=== PATIENT | male | born 1970 | race Caucasian/White ===

== ENCOUNTER 2018-03-07 02:50 | Emergency (ER) | payer MEDICARE, MEDICAID ==
[~2018-03-07] VITALS: Ht 175.3 cm; Wt 119.5 kg
[~2018-03-07 02:50] MED LIST: ASPI81TA52 PO; ATOR40TA PO; CARSR60C PO; CITA-278 PO; CLOZ200T PO; FERR325T28 PO; GLIM1TAB46 PO; LOSA25TA96 PO; METF500T PO; OMEP20CA10 PO; TRAM50TA2 PO
[2018-03-07 02:55] VITALS: BP 162/73
[2018-03-07] MEDS ORDERED: cephalexin 250mg capsule PO ONE (03:45)
[2018-03-07] MEDS ORDERED: CEPH500C5 PO (03:45)
== END 2018-03-07 04:09 | disposition home or self-care (01) ==
LOC: ER 02:50
DX: S01.311A Laceration without foreign body of right ear, initial encounter (principal); E11.9 Type 2 diabetes mellitus without complications; F17.200 Nicotine dependence, unspecified, uncomplicated; G89.29 Other chronic pain; Z79.82 Long term (current) use of aspirin; Z79.899 Other long term (current) drug therapy; Z79.84 Long term (current) use of oral hypoglycemic drugs; Z98.890 Other specified postprocedural states; W22.8XXA Striking against or struck by other objects, initial encounter; Y93.89 Activity, other specified; Y92.89 Other specified places as the place of occurrence of the external cause; Y99.8 Other external cause status
CPT/HCPCS: 99283; A6449

== ENCOUNTER 2018-06-01 20:52 | Emergency (ER) | payer MEDICARE, MEDICAID ==
[~2018-06-01] VITALS: Ht 175.3 cm; Wt 115.0 kg
[~2018-06-01 20:52] MED LIST changes: +BISA-155 PO; +CEPH500C5 PO; +MAGN296S50 PO; +NA P133E4 RC; +POTA20TA19 PO
[2018-06-01 21:01] VITALS: BP 138/78
[2018-06-01] MEDS ORDERED: acetaminophen 325mg tablet PO ONE (22:05)
[2018-06-01] MEDS ORDERED: ketorolac trometh inj. 60 MG/2 ML VIAL IM ONE (22:05)
[2018-06-01] MEDS ORDERED: LIDOcaine 5% patch TP ONE (22:05)
[2018-06-01] MEDS ORDERED: HYDR-3965 PO (22:28)
[2018-06-01] MEDS ORDERED: LIDO700A32 TOP (22:28)
[2018-06-01] MEDS ORDERED: CYCL-1 PO (22:28)
== END 2018-06-01 22:45 | disposition home or self-care (01) ==
LOC: ER 20:53
DX: M54.5 Low back pain (principal); E11.9 Type 2 diabetes mellitus without complications; G89.29 Other chronic pain; Z79.82 Long term (current) use of aspirin; Z79.2 Long term (current) use of antibiotics; Z79.899 Other long term (current) drug therapy
CPT/HCPCS: 82948; 99283

== ENCOUNTER 2018-06-24 18:48 | Inpatient (IN) | payer MEDICARE, MEDICAID ==
[~2018-06-24] VITALS: Ht 172.7 cm; Wt 113.7 kg
[~2018-06-24 18:48] MED LIST changes: +CYCL-1 PO; +HYDR-3965 PO; +LIDO700A32 TOP; -POTA20TA19 PO
[2018-06-24 19:23] LABS: CLARITY,URINE CLEAR (Clear); COLOR,URINE YELLOW (Yellow); GLUCOSE, URINE 100 mg/dl (Neg); KETONES,URINE NEGATIVE (Neg); LEUKOCYTE ESTERASE ,URINE NEGATIVE (Neg); NITRITES, URINE NEGATIVE (Neg); OCCULT BLOOD,URINE NEGATIVE (Neg); PROTEIN,URINE NEGATIVE (Neg)
[2018-06-24 19:25] LABS: UA COLLECTION TYPE CLN CATCH MIDSTREAM
[2018-06-24 19:30] LABS: BASOPHILS # (AUTO) 0.2 X10'3 (0-0.2); BASOPHILS % (AUTO) 1.2 % (0-1); EOSINOPHILS # (AUTO) 0.1 X10'3 (0-0.9); EOSINOPHILS % (AUTO) 0.5 % (0-6); HEMATOCRIT 39.1 % (42.0-52.0); HEMOGLOBIN 13.2 g/dl (14.0-17.9); LYMPHOCYTES # (AUTO) 1.2 X10'3 (1.1-4.8); LYMPHOCYTES % (AUTO) 7.1 % (21-51); MEAN CORPUSCULAR HEMOGLOBIN 26.9 PG (27.0-31.0); MEAN CORPUSCULAR HGB CONC 33.8 % (33.0-36.5); MEAN CORPUSCULAR VOLUME 79.7 FL (78-98); MEAN PLATELET VOLUME 6.3 FL (7.4-10.4); MONOCYTES # (AUTO) 0.7 X10'3 (0-0.9); MONOCYTES % (AUTO) 4.2 % (2-12); NEUTROPHILS # (AUTO) 14.1 X10'3 (1.8-7.7); PLATELET COUNT 440 X10'3 (140-440); RED CELL DISTRIBUTION WIDTH 13.2 % (11.5-14.5); WHITE BLOOD COUNT 16.3 X10'3 (4.5-11.0)
[2018-06-24 19:33] LABS: PROTHROMBIN TIME 10.7 SECONDS (9.0-12.0)
[2018-06-24 19:37] LABS: ALANINE AMINOTRANSFERASE 104 U/L (12-78); ALBUMIN 2.9 G/DL (3.4-5.0); ALBUMIN/GLOBULIN RATIO 0.6 (1.1-1.5); ALKALINE PHOSPHATASE 133 IU/L (46-116); ANION GAP 8 (8-16); ASPARTATE AMINO TRANSFERASE 39 U/L (10-37); BILIRUBIN,TOTAL 0.5 MG/DL (0.1-1.0); BLOOD UREA NITROGEN 10 MG/DL (7-18); BUN/CREATININE RATIO 10.6 (5.4-32.0); CALCIUM 9.5 MG/DL (8.5-10.1); CHLORIDE 83 MMOL/L (99-107); CREATININE 0.94 MG/DL (0.60-1.10); GLUCOSE 193 MG/DL (70-104); POTASSIUM 3.3 MMOL/L (3.5-5.1); SODIUM 123 MMOL/L (135-145); TOTAL CARBON DIOXIDE 31.9 MMOL/L (24-32); TOTAL PROTEIN 7.7 G/DL (6.4-8.2); eGFR 85 ML/MIN
[2018-06-24 20:28] LABS: URINE AMPHETAMINE SCREEN NEGATIVE (Neg); URINE BARBITUATE SCREEN NEGATIVE (Neg); URINE BENZODIAZEPINES SCREEN NEGATIVE (Neg); URINE CANNABINOID SCREEN NEGATIVE (Neg); URINE COCAINE SCREEN NEGATIVE (Neg); URINE METHADONE SCREEN NEGATIVE (Neg); URINE OPIATE SCREEN POSITIVE (Neg); URINE PHENCYCLIDINE SCREEN NEGATIVE (Neg)
[2018-06-24 20:28] LABS: PARTIAL THROMBOPLASTIN TIME 35 SECONDS (22-32)
[2018-06-24 20:40] LABS: ETHANOL < 0.010 GM/DL (0.0-0.010)
[2018-06-24] MEDS ORDERED: CefTRIAXone/D5W-Rocephin 1gm 50 ML IV ONE (21:00)
[2018-06-24] MEDS ORDERED: azithromycin/NS 500mg/250ml 250 ML IV ONE (21:00)
[2018-06-24 21:11] LABS: ACETAMINOPHEN < 2.0 UG/ML (10-30)
[2018-06-24] MEDS ORDERED: mag hydrox/Alum hydrox/simeth 30ml oral suspension PO PRN (22:25)
[2018-06-24] MEDS ORDERED: ondansetron/PF 4mg/2ml inj IV PRN (22:25)
[2018-06-24] MEDS ORDERED: HYDROcodone/acetaminophen 5mg/325mg tablet PO PRN (22:25)
[2018-06-24] MEDS ORDERED: acetaminophen 325mg tablet PO PRN (22:25)
[2018-06-24] MEDS ORDERED: magnesium hydroxide 30ml (MOM) UD suspension PO PRN (22:25)
[2018-06-24] MEDS ORDERED: glucagon, human recombinant 1mg kit SUBCUT PRN (22:35)
[2018-06-24] MEDS ORDERED: MESSAGE TO PHARMACY PO ONE (22:35)
[2018-06-24] MEDS ORDERED: dextrose ORAL solution 15 GM/59 ML bottle PO PRN ×2 (22:35)
[2018-06-24] MEDS ORDERED: dextrose 50%-water 50ml dispensing syringe IV PRN ×2 (22:35)
[2018-06-24] MEDS: normal saline 1000ml 1,000 ML IV SCH (22:38)
[2018-06-24 23:03] LABS: HEMOGLOBIN A1C 8.3 % (4.5-6.2)
[2018-06-24] MEDS: clozapine 100mg tablet PO SCH (23:03)
[2018-06-24 23:38] VITALS: BP 162/58
[2018-06-24] MEDS: HYDROcodone/acetaminophen 10/325mg tab PO PRN (23:59)
[2018-06-25] MEDS: traMADol 50MG tablet PO SCH ×4 (01:40→20:19)
[2018-06-25 05:32] LABS: BASOPHILS % (AUTO) 0.3 % (0-1); EOSINOPHILS # (AUTO) 0.1 X10'3 (0-0.9); EOSINOPHILS % (AUTO) 0.8 % (0-6); HEMOGLOBIN 12.4 g/dl (14.0-17.9); LYMPHOCYTES # (AUTO) 1.3 X10'3 (1.1-4.8); LYMPHOCYTES % (AUTO) 9.4 % (21-51); MEAN CORPUSCULAR HEMOGLOBIN 27.5 PG (27.0-31.0); MEAN CORPUSCULAR HGB CONC 34.4 % (33.0-36.5); MEAN PLATELET VOLUME 6.7 FL (7.4-10.4); MONOCYTES # (AUTO) 0.8 X10'3 (0-0.9); MONOCYTES % (AUTO) 6.1 % (2-12); NEUTROPHILS # (AUTO) 11.4 X10'3 (1.8-7.7); NEUTROPHILS % (AUTO) 83.4 % (42-75); PLATELET COUNT 350 X10'3 (140-440); WHITE BLOOD COUNT 13.6 X10'3 (4.5-11.0)
[2018-06-25 06:00] LABS: ALANINE AMINOTRANSFERASE 92 U/L (12-78); ALBUMIN 2.6 G/DL (3.4-5.0); ALBUMIN/GLOBULIN RATIO 0.6 (1.1-1.5); ALKALINE PHOSPHATASE 125 IU/L (46-116); ANION GAP 8 (8-16); ASPARTATE AMINO TRANSFERASE 36 U/L (10-37); BILIRUBIN,TOTAL 0.4 MG/DL (0.1-1.0); BLOOD UREA NITROGEN 9 MG/DL (7-18); BUN/CREATININE RATIO 11.4 (5.4-32.0); CALCIUM 9.2 MG/DL (8.5-10.1); CHLORIDE 92 MMOL/L (99-107); CREATININE 0.79 MG/DL (0.60-1.10); GLUCOSE 103 MG/DL (70-104); SODIUM 131 MMOL/L (135-145); TOTAL CARBON DIOXIDE 30.8 MMOL/L (24-32); eGFR > 90 ML/MIN
[2018-06-25 06:28] LABS: POTASSIUM 2.8 MMOL/L (3.5-5.1)
[2018-06-25] MEDS: normal saline 1000ml 1,000 ML IV SCH (07:12)
[2018-06-25] MEDS ORDERED: potassium Cl 40MEQ/NS 500ml 500 ML IV PRN ×2 (07:25)
[2018-06-25] MEDS ORDERED: potassium Cl 20 mEq SR tablet PO PRN (07:25)
[2018-06-25 07:52] LABS: MAGNESIUM 1.8 MG/DL (1.5-2.4)
[2018-06-25 08:00] VITALS: BP 121/59
[2018-06-25] MEDS ORDERED: azithromycin 250mg tablet PO SCH (08:00)
[2018-06-25] MEDS: diltiazem CD 180mg cap (once-daily) PO SCH (08:01)
[2018-06-25] MEDS: potassium Cl 20 mEq SR tablet PO PRN ×3 (08:01→16:48)
[2018-06-25] MEDS: aspirin 81mg tablet.DR PO SCH (08:02)
[2018-06-25] MEDS: losartan 50mg tablet PO SCH (08:02)
[2018-06-25] MEDS: citalopram 20mg tablet PO SCH (08:02)
[2018-06-25] MEDS: atorvastatin 20mg tablet PO SCH (08:03)
[2018-06-25] MEDS: pantoprazole 40mg Tablet.DR PO SCH (08:03)
[2018-06-25] MEDS: heparin, porcine 5000 units/ml vial SQ SCH ×2 (08:05→20:20)
[2018-06-25 12:30] VITALS: BP 133/53
[2018-06-25 14:27] LABS: ALBUMIN 2.5 G/DL (3.4-5.0); ANION GAP 7 (8-16); BLOOD UREA NITROGEN 10 MG/DL (7-18); CHLORIDE 92 MMOL/L (99-107); CREATININE 0.83 MG/DL (0.60-1.10); GLUCOSE 196 MG/DL (70-104); POTASSIUM 3.5 MMOL/L (3.5-5.1); SODIUM 130 MMOL/L (135-145); TOTAL CARBON DIOXIDE 31.3 MMOL/L (24-32); eGFR > 90 ML/MIN
[2018-06-25] MEDS: insulin Lispro (HumaLOG) vial - multi-dose SQ SCH (18:54)
[2018-06-25 19:00] VITALS: BP 139/75
[2018-06-25] MEDS: CefTRIAXone/D5W-Rocephin 1gm 50 ML IV SCH (20:39)
[2018-06-25] MEDS: clozapine 100mg tablet PO SCH (20:52)
[2018-06-25] MEDS: potassium Cl 20mEq in NS 1,000 ML IV SCH (22:20)
[2018-06-26] VITALS (10 sets, daily range): BP systolic 103–147; BP diastolic 55–77
[2018-06-26] MEDS: traMADol 50MG tablet PO SCH ×4 (02:02→20:10)
[2018-06-26 05:17] LABS: BASOPHILS % (AUTO) 0.3 % (0-1); EOSINOPHILS # (AUTO) 0.1 X10'3 (0-0.9); EOSINOPHILS % (AUTO) 0.9 % (0-6); HEMATOCRIT 33.5 % (42.0-52.0); HEMOGLOBIN 11.6 g/dl (14.0-17.9); LYMPHOCYTES % (AUTO) 9.1 % (21-51); MEAN CORPUSCULAR HEMOGLOBIN 27.6 PG (27.0-31.0); MEAN CORPUSCULAR HGB CONC 34.8 % (33.0-36.5); MEAN CORPUSCULAR VOLUME 79.4 FL (78-98); MEAN PLATELET VOLUME 6.6 FL (7.4-10.4); MONOCYTES # (AUTO) 0.8 X10'3 (0-0.9); NEUTROPHILS # (AUTO) 9.6 X10'3 (1.8-7.7); NEUTROPHILS % (AUTO) 82.7 % (42-75); PLATELET COUNT 359 X10'3 (140-440); RED BLOOD COUNT 4.23 X10'6 (4.70-6.10); RED CELL DISTRIBUTION WIDTH 13.6 % (11.5-14.5); WHITE BLOOD COUNT 11.5 X10'3 (4.5-11.0)
[2018-06-26 05:34] LABS: ALANINE AMINOTRANSFERASE 105 U/L (12-78); ALBUMIN 2.4 G/DL (3.4-5.0); ALBUMIN/GLOBULIN RATIO 0.6 (1.1-1.5); ALKALINE PHOSPHATASE 135 IU/L (46-116); ANION GAP 8 (8-16); ASPARTATE AMINO TRANSFERASE 41 U/L (10-37); BILIRUBIN,TOTAL 0.3 MG/DL (0.1-1.0); BLOOD UREA NITROGEN 10 MG/DL (7-18); BUN/CREATININE RATIO 12.3 (5.4-32.0); CALCIUM 8.7 MG/DL (8.5-10.1); CHLORIDE 95 MMOL/L (99-107); CREATININE 0.81 MG/DL (0.60-1.10); GLUCOSE 245 MG/DL (70-104); MAGNESIUM 1.8 MG/DL (1.5-2.4); POTASSIUM 3.7 MMOL/L (3.5-5.1); SODIUM 131 MMOL/L (135-145); TOTAL CARBON DIOXIDE 27.8 MMOL/L (24-32); TOTAL PROTEIN 6.7 G/DL (6.4-8.2); eGFR > 90 ML/MIN
[2018-06-26] MEDS: aspirin 81mg tablet.DR PO SCH (08:07)
[2018-06-26] MEDS: losartan 50mg tablet PO SCH (08:07)
[2018-06-26] MEDS: citalopram 20mg tablet PO SCH (08:07)
[2018-06-26] MEDS: atorvastatin 20mg tablet PO SCH (08:08)
[2018-06-26] MEDS: pantoprazole 40mg Tablet.DR PO SCH (08:08)
[2018-06-26] MEDS: heparin, porcine 5000 units/ml vial SQ SCH ×2 (08:08→20:10)
[2018-06-26] MEDS: diltiazem CD 180mg cap (once-daily) PO SCH (08:08)
[2018-06-26] MEDS: insulin Lispro (HumaLOG) vial - multi-dose SQ SCH ×3 (08:20→18:46)
[2018-06-26] MEDS: potassium Cl 20mEq in NS 1,000 ML IV SCH (10:55)
[2018-06-26] MEDS: lactobacillus rhamnosus 10,000 MMU CELLS/CAPSULE PO SCH (20:09)
[2018-06-26] MEDS: clozapine 100mg tablet PO SCH (21:06)
[2018-06-26] MEDS: CefTRIAXone/D5W-Rocephin 1gm 50 ML IV SCH (21:07)
[2018-06-27] VITALS: BP 144/52
[2018-06-27] MEDS: potassium Cl 20mEq in NS 1,000 ML IV SCH ×3 (00:35→19:07)
[2018-06-27] MEDS: traMADol 50MG tablet PO SCH ×4 (02:59→19:00)
[2018-06-27 03:00] VITALS: BP 138/65
[2018-06-27 05:35] LABS: BASOPHILS # (AUTO) 0.1 X10'3 (0-0.2); BASOPHILS % (AUTO) 0.5 % (0-1); EOSINOPHILS # (AUTO) 0.1 X10'3 (0-0.9); EOSINOPHILS % (AUTO) 1.1 % (0-6); HEMATOCRIT 34.1 % (42.0-52.0); HEMOGLOBIN 11.7 g/dl (14.0-17.9); LYMPHOCYTES # (AUTO) 1.1 X10'3 (1.1-4.8); LYMPHOCYTES % (AUTO) 9.8 % (21-51); MEAN CORPUSCULAR HEMOGLOBIN 27.3 PG (27.0-31.0); MEAN CORPUSCULAR HGB CONC 34.4 % (33.0-36.5); MEAN CORPUSCULAR VOLUME 79.4 FL (78-98); MEAN PLATELET VOLUME 6.7 FL (7.4-10.4); MONOCYTES # (AUTO) 0.8 X10'3 (0-0.9); MONOCYTES % (AUTO) 6.8 % (2-12); NEUTROPHILS # (AUTO) 9.1 X10'3 (1.8-7.7); NEUTROPHILS % (AUTO) 81.8 % (42-75); PLATELET COUNT 396 X10'3 (140-440); RED BLOOD COUNT 4.29 X10'6 (4.70-6.10); RED CELL DISTRIBUTION WIDTH 13.7 % (11.5-14.5); WHITE BLOOD COUNT 11.2 X10'3 (4.5-11.0)
[2018-06-27 05:48] LABS: ALANINE AMINOTRANSFERASE 137 U/L (12-78); ALBUMIN 2.5 G/DL (3.4-5.0); ALBUMIN/GLOBULIN RATIO 0.6 (1.1-1.5); ALKALINE PHOSPHATASE 161 IU/L (46-116); ANION GAP 8 (8-16); ASPARTATE AMINO TRANSFERASE 52 U/L (10-37); BILIRUBIN,TOTAL 0.6 MG/DL (0.1-1.0); BLOOD UREA NITROGEN 10 MG/DL (7-18); BUN/CREATININE RATIO 14.5 (5.4-32.0); CALCIUM 9.3 MG/DL (8.5-10.1); CHLORIDE 97 MMOL/L (99-107); CREATININE 0.69 MG/DL (0.60-1.10); GLUCOSE 185 MG/DL (70-104); MAGNESIUM 1.7 MG/DL (1.5-2.4); POTASSIUM 3.5 MMOL/L (3.5-5.1); SODIUM 133 MMOL/L (135-145); TOTAL CARBON DIOXIDE 28.5 MMOL/L (24-32); TOTAL PROTEIN 6.9 G/DL (6.4-8.2); eGFR > 90 ML/MIN
[2018-06-27 07:00] VITALS: BP 138/65
[2018-06-27] MEDS: citalopram 20mg tablet PO SCH (07:51)
[2018-06-27] MEDS: losartan 50mg tablet PO SCH (07:51)
[2018-06-27] MEDS: lactobacillus rhamnosus 10,000 MMU CELLS/CAPSULE PO SCH ×2 (07:51→18:59)
[2018-06-27] MEDS: aspirin 81mg tablet.DR PO SCH (07:51)
[2018-06-27] MEDS: diltiazem CD 180mg cap (once-daily) PO SCH (07:52)
[2018-06-27] MEDS: atorvastatin 20mg tablet PO SCH (07:52)
[2018-06-27] MEDS: pantoprazole 40mg Tablet.DR PO SCH (07:52)
[2018-06-27] MEDS: heparin, porcine 5000 units/ml vial SQ SCH ×2 (07:54→20:11)
[2018-06-27] MEDS: insulin Lispro (HumaLOG) vial - multi-dose SQ SCH ×3 (08:47→18:55)
[2018-06-27 11:00] VITALS: BP 150/89
[2018-06-27] MEDS ORDERED: levoFLOXACIN-Levaquin 750MG/D5 150 ML IV SCH (12:20)
[2018-06-27 18:00] VITALS: BP 137/63
[2018-06-27] MEDS: clozapine 100mg tablet PO SCH (21:40)
[2018-06-27] MEDS: HYDROcodone/acetaminophen 10/325mg tab PO PRN (21:41)
[2018-06-28] VITALS: BP 155/57
[2018-06-28] MEDS: traMADol 50MG tablet PO SCH ×2 (02:03→07:16)
[2018-06-28] MEDS: HYDROcodone/acetaminophen 10/325mg tab PO PRN ×2 (05:00→09:07)
[2018-06-28 05:11] LABS: BASOPHILS % (AUTO) 0.3 % (0-1); EOSINOPHILS # (AUTO) 0.1 X10'3 (0-0.9); EOSINOPHILS % (AUTO) 1.3 % (0-6); HEMATOCRIT 36.4 % (42.0-52.0); LYMPHOCYTES % (AUTO) 11.2 % (21-51); MEAN CORPUSCULAR HGB CONC 33.1 % (33.0-36.5); MEAN CORPUSCULAR VOLUME 81.7 FL (78-98); MEAN PLATELET VOLUME 6.5 FL (7.4-10.4); MONOCYTES # (AUTO) 0.6 X10'3 (0-0.9); MONOCYTES % (AUTO) 6.9 % (2-12); NEUTROPHILS # (AUTO) 7.6 X10'3 (1.8-7.7); NEUTROPHILS % (AUTO) 80.3 % (42-75); PLATELET COUNT 443 X10'3 (140-440); RED BLOOD COUNT 4.45 X10'6 (4.70-6.10); RED CELL DISTRIBUTION WIDTH 13.6 % (11.5-14.5); WHITE BLOOD COUNT 9.3 X10'3 (4.5-11.0)
[2018-06-28 05:21] LABS: HBSAG SCREEN Negative (Negative); HEP A AB, IGM Negative (Negative); HEP B CORE AB, IGM Negative (Negative); HEPATITIS C ANTIBODY <0.1 s/co ratio (0.0-0.9)
[2018-06-28 05:37] LABS: ALANINE AMINOTRANSFERASE 139 U/L (12-78); ALBUMIN 2.4 G/DL (3.4-5.0); ALBUMIN/GLOBULIN RATIO 0.5 (1.1-1.5); ALKALINE PHOSPHATASE 156 IU/L (46-116); ANION GAP 8 (8-16); ASPARTATE AMINO TRANSFERASE 42 U/L (10-37); BILIRUBIN,TOTAL 0.4 MG/DL (0.1-1.0); BLOOD UREA NITROGEN 13 MG/DL (7-18); BUN/CREATININE RATIO 15.5 (5.4-32.0); CALCIUM 9.2 MG/DL (8.5-10.1); CHLORIDE 96 MMOL/L (99-107); CREATININE 0.84 MG/DL (0.60-1.10); GLUCOSE 286 MG/DL (70-104); MAGNESIUM 1.6 MG/DL (1.5-2.4); POTASSIUM 4.8 MMOL/L (3.5-5.1); SODIUM 131 MMOL/L (135-145); TOTAL CARBON DIOXIDE 27.5 MMOL/L (24-32); TOTAL PROTEIN 6.9 G/DL (6.4-8.2); eGFR > 90 ML/MIN
[2018-06-28 07:00] VITALS: BP 104/57
[2018-06-28] MEDS: lactobacillus rhamnosus 10,000 MMU CELLS/CAPSULE PO SCH (07:15)
[2018-06-28] MEDS: atorvastatin 20mg tablet PO SCH (07:15)
[2018-06-28] MEDS: aspirin 81mg tablet.DR PO SCH (07:15)
[2018-06-28] MEDS: citalopram 20mg tablet PO SCH (07:15)
[2018-06-28] MEDS: losartan 50mg tablet PO SCH (07:15)
[2018-06-28] MEDS: pantoprazole 40mg Tablet.DR PO SCH (07:16)
[2018-06-28] MEDS: heparin, porcine 5000 units/ml vial SQ SCH (07:17)
[2018-06-28] MEDS ORDERED: levoFLOXACIN 750MG TABLET PO SCH (08:00)
[2018-06-28 08:35] VITALS: BP 121/68
[2018-06-28] MEDS: diltiazem CD 180mg cap (once-daily) PO SCH (08:42)
[2018-06-28] MEDS: insulin Lispro (HumaLOG) vial - multi-dose SQ SCH (09:06)
[2018-06-28] MEDS ORDERED: LACT1CAP26 PO (11:20)
[2018-06-28] MEDS ORDERED: LEVO750T46 PO (11:20)
[2018-06-28] MEDS ORDERED: SITA50TA PO (11:20)
[2018-06-28] MEDS ORDERED: ALBU8.5H8 INH (11:20)
[2018-06-28] MEDS ORDERED: BUDE10.22 INH (11:20)
[2018-06-28] MEDS ORDERED: GLIM1TAB46 PO (11:20)
[2018-06-28] MEDS ORDERED: LANTUS SQ (11:48)
[2018-06-28 12:14] VITALS: BP 129/73
== END 2018-06-28 12:30 | disposition home or self-care (01) | DRG 190 ==
LOC: ER 18:49 → ED HOLD 22:25 → SUR 3N 23:27
PROVIDERS: ADMIT Internal Medicine; ATTEND Family Medicine
DX: J44.0 Chronic obstructive pulmonary disease with (acute) lower respiratory infection (principal); J18.1 Lobar pneumonia, unspecified organism; E87.1 Hypo-osmolality and hyponatremia; J44.1 Chronic obstructive pulmonary disease with (acute) exacerbation; E11.9 Type 2 diabetes mellitus without complications; E87.6 Hypokalemia; F17.200 Nicotine dependence, unspecified, uncomplicated; M54.9 Dorsalgia, unspecified; R16.0 Hepatomegaly, not elsewhere classified; F20.9 Schizophrenia, unspecified; G47.33 Obstructive sleep apnea (adult) (pediatric); G89.4 Chronic pain syndrome; J20.9 Acute bronchitis, unspecified; K76.0 Fatty (change of) liver, not elsewhere classified; Z90.49 Acquired absence of other specified parts of digestive tract; Z79.899 Other long term (current) drug therapy; Z79.4 Long term (current) use of insulin; Z71.6 Tobacco abuse counseling
CPT/HCPCS: 36415; 71045; 76700; 80048; 80053; 80305; 80320; 80329; 81003; 82948; 83036; 83735; 84443; 85025; 85610; 85730; 86705; 86706; 86709; 86803; 87070; 87340; 96365; 96368; 99285; J0696; J1644; J1956; J7030

== ENCOUNTER 2018-07-19 04:55 | Emergency (ER) | payer MEDICARE, MEDICAID ==
[~2018-07-19] VITALS: Ht 172.7 cm; Wt 115.0 kg
[~2018-07-19 04:55] MED LIST changes: +ALBU8.5H8 INH; -BISA-155 PO; +BUDE10.22 INH; -CEPH500C5 PO; -CYCL-1 PO; -FERR325T28 PO; -GLIM1TAB46 PO; -HYDR-3965 PO; +LACT1CAP26 PO; +LANTUS SQ; +LEVO750T46 PO; -LIDO700A32 TOP; -MAGN296S50 PO; -NA P133E4 RC
[2018-07-19] MEDS ORDERED: ketorolac trometh inj. 60 MG/2 ML VIAL IM ONE (06:15)
[2018-07-19] MEDS ORDERED: DICL50TA8 PO (06:15)
[2018-07-19] MEDS ORDERED: HYDR-3965 PO (06:15)
[2018-07-19 06:26] VITALS: BP 127/80
== END 2018-07-19 07:15 | disposition home or self-care (01) ==
LOC: ER 04:56
DX: M54.5 Low back pain (principal); E11.9 Type 2 diabetes mellitus without complications; G89.29 Other chronic pain; Z90.49 Acquired absence of other specified parts of digestive tract; Z79.899 Other long term (current) drug therapy; Z79.82 Long term (current) use of aspirin; Z79.4 Long term (current) use of insulin
CPT/HCPCS: 96372; 99283; J1885

== ENCOUNTER 2018-07-30 02:36 | Emergency (ER) | payer MEDICARE, MEDICAID ==
[~2018-07-30] VITALS: Ht 175.3 cm; Wt 115.9 kg
[~2018-07-30 02:36] MED LIST changes: +DICL50TA8 PO; +HYDR-3965 PO; -LANTUS SQ
[2018-07-30 02:42] VITALS: BP 148/99
[2018-07-30] MEDS ORDERED: ketorolac trometh inj. 60 MG/2 ML VIAL IM ONE (03:05)
[2018-07-30] MEDS ORDERED: CYCL-1 PO (03:11)
[2018-07-30] MEDS ORDERED: DICL50TA8 PO (03:11)
== END 2018-07-30 03:39 | disposition home or self-care (01) ==
LOC: ER 02:37
DX: M54.5 Low back pain (principal); E11.9 Type 2 diabetes mellitus without complications; Z79.899 Other long term (current) drug therapy; Z79.82 Long term (current) use of aspirin; Z90.49 Acquired absence of other specified parts of digestive tract
CPT/HCPCS: 96372; 99283; J1885

== ENCOUNTER 2018-08-31 02:32 | Emergency (ER) | payer MEDICARE, MEDICAID ==
[~2018-08-31] VITALS: Ht 175.3 cm; Wt 115.9 kg
[~2018-08-31 02:32] MED LIST changes: +CYCL-1 PO; -HYDR-3965 PO
[2018-08-31 02:35] VITALS: BP 187/105
[2018-08-31] MEDS ORDERED: ketorolac trometh inj. 60 MG/2 ML VIAL IM ONE (03:15)
[2018-08-31] MEDS ORDERED: orphenadrine citrate 60mg/2ml inj. IM ONE (03:15)
[2018-08-31] MEDS ORDERED: acetaminophen 325mg tablet PO ONE (03:15)
[2018-08-31] MEDS ORDERED: DICL50TA6 PO (04:05)
[2018-08-31] MEDS ORDERED: ACET-2615 PO (04:05)
== END 2018-08-31 04:11 | disposition home or self-care (01) ==
LOC: ER 02:33
DX: G89.29 Other chronic pain (principal); M54.5 Low back pain; E11.9 Type 2 diabetes mellitus without complications; M79.604 Pain in right leg; R20.0 Anesthesia of skin; R20.2 Paresthesia of skin; Z90.49 Acquired absence of other specified parts of digestive tract
CPT/HCPCS: 96372; 99283; J1885; J2360